=== PATIENT | female | born 1950 | race Caucasian/White ===

== ENCOUNTER 2025-10-25 09:01 | Outpatient (CLI) | payer MEDICARE, SELFPAY ==
--- NOTE | 2025-10-25 06:00 | DI.RAD_ITS ---
Exam(s) XR PAIN CLINIC LUMBAR SP 2V EXAM: XR PAIN CLINIC LUMBAR SP 2V CLINICAL HISTORY: DX: Lumbar Spondylosis. TECHNIQUE: Fluoroscopy was provided for the referring physician for guidance with performing pain clinic injection procedure. COMPARISON: No exams were available for comparison FINDINGS: Please see procedure note for details. Fluoro time: 18.7 seconds RADIATION DOSE DELIVERED: yayo Matias=9.5 mGy
[2025-10-25 07:07] VITALS: BP 143/48; PULSE 60; RESP 18; TEMP 36.5; O2SAT 98
--- NOTE | 2025-10-25 09:09 | PDOC.PAIN ---
Date of service: 10/25/25 Time of Service: 09:49 Pain Managment Procedure Note Procedure Note Procedure Note: Lumbar Medial Branch Block ? Location: Bilateral Medial Branches ? Levels: L3,4,5? (L4-5, L5-S1 FACET) ? Pre-procedure Diagnosis: M47.817 Spondylosis without myelopathy or radiculopathy, lumbosacral region M47.816 Spondylosis without myelopathy or radiculopathy, lumbar region ? Post-procedure Diagnosis:? The same as above ? Sedation: NONE? Estimated blood loss:? less than 2 ml ? Surgeon:? Leobardo Curtis MD COMMENT: back pain that seems mechanical from her facet arthropathy. ? Procedure Detail:? The procedure and potential risks were explained to the patient and informed written consent was obtained. The patient was escorted to the procedure room and placed in the prone position. Pillows were utilized for proper positioning and comfort.? Time out was performed in procedure room with nursing staff confirming the patient's identity, procedure to be performed, allergies, and any blood thinning or anti-platelet medications. The patient's lower back was prepped with chlorhexidine and draped in a sterile fashion. Sterile technique was maintained throughout the procedure.? Sterile gloves were used, a face mask was worn, and new single dose vials of all medications were used with the top being swabbed with alcohol and given time to dry prior to withdrawal of medication.? A left AND right-sided oblique fluoroscopic view was obtained, with visualization of the: ?RIGHT and LEFT L3,4 and DORSAL RAMUS L5 AT SACRAL ALA ? junction of the transverse process and superior articular process. Lidocaine 1% was used to anesthetize the skin. A 22-gauge Quincke needle was advanced along the superior margin of the transverse process and lateral to the articular process.? It was directed inferiorly and medially so that the tip struck the junction of the base of the transverse process and the superior articular process. The needle was then walked over the superior aspect of the transverse process and advanced slightly along the course of the L3,4,5 medial branch nerves. Proper placement was verified in A/P, oblique and lateral views under fluoroscopy. At this location, following negative aspiration, 0.5ml 0.5% bupivacaine was injected.? The patient tolerated the procedure well and was transported to the recovery area for observation and discharge instructions. Permanent images saved and recorded. Follow-up:? The patient will return in 2 weeks for confirmatory LMBBs if they? meet the criteria from today's procedure lasting for at least 2 hours.? COMMENT:Pain went from 10 /10 to 0/10. Before the patient left patient had greater than 100% pain relief. Would consider adding L2 for the L3-4 facet joint as well. if that is effective then she can proceed with radiofrequency ablation. If not I would consider proceeding with 1 epidural steroid injection as her symptoms are not classic claudication symptoms could be due to her stenosis. Coding Conscious Sedation used for procedure: No CPT Codes: LMBB (includes Fluoro) Lumbar/Sacral, single lvl *BILATERAL* - [id number] ([id number]~G5) 50 - BILATERAL PROCEDURE LMBB (includes Fluoro) Lumbar/Sacral, 2nd lvl - 10857 ([id number] ~G) LT - LEFT SIDE, RT - RIGHT SIDE Additional Codes: Date of Service () Diagnoses: M47.817 Spondylosis without myelopathy or radiculopathy, lumbosacral region M47.816 Spondylosis without myelopathy or radiculopathy, lumbar region
[2025-10-25 09:32] VITALS: PULSE 71; O2SAT 94
[2025-10-25 09:40] VITALS: PULSE 70; O2SAT 95
[2025-10-25] MEDS: Bupivacaine 0.5% Pres-Free 10 ML VIAL IJ (09:53)
[2025-10-25] MEDS: Nerve Block Tray 1 EACH MC (09:53)
== END 2025-10-25 09:02 | disposition home or self-care (01) ==
LOC: PC 09:01
PROVIDERS: PCP Internal Medicine; Visit Provider Anesthesiology Pain Medicine
DX: M54.50 Low back pain, unspecified (principal); M47.816 Spondylosis without myelopathy or radiculopathy, lumbar region; M47.817 Spondylosis without myelopathy or radiculopathy, lumbosacral region
CPT/HCPCS: 64493; 64494; 72100; J0665

== ENCOUNTER 2025-11-16 11:44 | Outpatient (CLI) | payer MEDICARE, SELFPAY ==
--- NOTE | 2025-11-16 06:00 | DI.RAD_ITS ---
Exam(s) XR PAIN CLINIC LUMBAR SP 2V EXAM: XR PAIN CLINIC LUMBAR SP 2V CLINICAL HISTORY: Dx: Lumbar Spondylosis. TECHNIQUE: Fluoroscopy was provided for the referring physician for guidance with performing pain clinic injection procedure. COMPARISON: No exams were available for comparison FINDINGS: Please see procedure note for details. Fluoro time: 12.1 seconds RADIATION DOSE DELIVERED: yayo Matias=6.4 mGy
[2025-11-16 11:51] VITALS: BP 131/55; PULSE 55; RESP 18; TEMP 36.5; O2SAT 98
[2025-11-16 12:19] VITALS: PULSE 65; O2SAT 95
[2025-11-16 12:20] VITALS: PULSE 60; O2SAT 96
[2025-11-16 12:30] VITALS: PULSE 64; O2SAT 95
[2025-11-16 12:40] VITALS: PULSE 56; O2SAT 95
[2025-11-16] MEDS: Nerve Block Tray 1 EACH MC (12:46)
[2025-11-16] MEDS: Lidocaine 2% Pres-Free 5 ML VIAL IJ (12:46)
--- NOTE | 2025-11-16 12:47 | PDOC.PAIN_ITS ---
Date of service: 11/16/25 Time of Service: 12:48 Pain Managment Procedure Note Procedure Note Procedure Note: LUMBAR MEDIAL BRANCH BLOCK #2 Location: Bilateral Medial Branches ? Levels: L3,4,5? (L4-5, L5-S1 FACET) ? Pre-procedure Diagnosis: M47.817 Spondylosis without myelopathy or radiculopathy, lumbosacral region M47.816 Spondylosis without myelopathy or radiculopathy, lumbar region ? Post-procedure Diagnosis:? The same as above ? Sedation: NONE? Estimated blood loss:? less than 2 ml ? Surgeon:? Leobardo Curtis MD COMMENT: Patient had? GREATER THAN % relief after the first medial branch block for greater than the duration of the local anesthetic.? PRE PROCEDURE PAIN SCORE: 5/10 ? Procedure Detail:? The procedure and potential risks were explained to the patient and informed written consent was obtained. The patient was escorted to the procedure room and placed in the prone position. Pillows were utilized for proper positioning and comfort.? Time out was performed in procedure room with nursing staff confirming the patient's identity, procedure to be performed, allergies, and any blood thinning or anti-platelet medications. The patient's lower back was prepped with chlorhexidine and draped in a sterile fashion. Sterile technique was maintained throughout the procedure.? Sterile gloves were used, a face mask was worn, and new single dose vials of all medications were used with the top being swabbed with alcohol and given time to dry prior to withdrawal of medication.? A left and right-sided oblique fluoroscopic view was obtained, with visualization of the: ?RIGHT and LEFT L3,4 and DORSAL RAMUS L5 AT SACRAL ALA ? junction of the transverse process and superior articular process. Lidocaine 1% was used to anesthetize the skin. A 5 22-gauge Quincke needle was advanced along the superior margin of the transverse process and lateral to the articular process.? It was directed inferiorly and medially so that the tip struck the junction of the base of the transverse process and the superior articular process. The needle was then walked over the superior aspect of the transverse process and advanced slightly along the course of the L3,4,5 medial branch n erves. Proper placement was verified in A/P, oblique and lateral views under fluoroscopy. At this location, following negative aspiration, 0.5ml 2% lidocaine was injected.? The patient tolerated the procedure well and was discharged home with instructions. Permanent images saved and recorded. Follow-up:?? Will plan to proceed with lumbar medial branch RFA if the patient gets good relief from today's procedure lasting for at least 2 hours. COMMENT:Pain went from 5/10 to 0/10. Before the patient left patient had 100% pain relief. Coding Conscious Sedation used for procedure: No CPT Codes: LMBB (includes Fluoro) Lumbar/Sacral, 2nd lvl - 38083 ([id number] ~G) RT - RIGHT SIDE, LT - LEFT SIDE LMBB (includes Fluoro) Lumbar/Sacral, single lvl *BILATERAL* - [id number] ([id number]~G5) 50 - BILATERAL PROCEDURE Additional Codes: Date of Service () Diagnoses: M47.817 Spondylosis without myelopathy or radiculopathy, lumbosacral region M47.816 Spondylosis without myelopathy or radiculopathy, lumbar region
== END 2025-11-16 11:45 | disposition home or self-care (01) ==
PROVIDERS: PCP Internal Medicine; Visit Provider Anesthesiology Pain Medicine
DX: M54.50 Low back pain, unspecified (principal); M47.816 Spondylosis without myelopathy or radiculopathy, lumbar region; M47.817 Spondylosis without myelopathy or radiculopathy, lumbosacral region
CPT/HCPCS: 64493; 64494; 72100